=== PATIENT | male | born 1970 | race Caucasian/White ===

== ENCOUNTER 2023-08-21 08:07 | Day surgery (SDC) | payer BC, SELFPAY ==
[2023-08-21] VITALS (9 sets, daily range): BP systolic 113–165; BP diastolic 68–102; PULSE 59–79; RESP 13–20; TEMP 36.4–36.8; O2SAT 96–98; BMI 34.7
--- NOTE | 2023-08-21 08:31 | ED.GENADUL_ITS ---
Discharge Plan Disposition Patient Disposition: Admit to [facility] Condition: Serious Discharge Details Clinical Impression: Foreign body in anus and rectum, initial encounter Primary Care Provider: HermelindaLocal ED Provider: Elijah Ponce Home Meds and New Rx's Prescriptions: No Action lisinopril 40 mg tablet 40 mg PO ONCE Patient Comments: TAKE 1 TABLET BY MOUTH EVERY DAY folic acid 1 mg tablet 1 mg PO ONCE Patient Comments: 1 TABLET DAILY methotrexate sodium 2.5 mg tablet 2.5 mg PO .COMPLEX Patient Comments: 5 TABLET WEEKLY Rx Instructions: 2.5 mg orally x1/week; infliximab [Remicade] 100 mg recon soln 1 mg IV .q8wk HPI General Mode of arrival: ambulatory . Date/Time Provider Initiated Documentation: 08/21/23 08:14 . Limitations to Documentation: no limitations . Information obtained by: patient . HPI Narrative: 53-year-old male here with chief complaint of foreign body in the rectum. Patient notes a vibrating dildo was placed in his rectum last night around 10 PM. He has not been able to remove the sex toy. He feels pressure in his rectum like yes to have a bowel movement. No other symptoms. Related Data Home Medications Medication Instructions Recorded Confirmed folic acid 1 mg tablet 1 mg PO ONCE 08/21/23 08/21/23 infliximab 100 mg intravenous 1 mg IV .q8wk 08/21/23 08/21/23 solution (Remicade) lisinopril 40 mg tablet 40 mg PO ONCE 08/21/23 08/21/23 methotrexate sodium 2.5 mg tablet 2.5 mg PO .COMPLEX 08/21/23 08/21/23 Allergies Allergy/AdvReac Type Severity Reaction Status Date / Time Penicillins AdvReac Hives Verified 08/21/23 08:15 General Stated Complaint: ForeignBody ISABELL: 3 Review of Systems Gastrointestinal Gastrointestinal: Reports as per HPI Exam Const General: cooperative and no acute distress HENMT Mouth: moist mucous membranes Cardio Rate: regular rate and not tachycardic Rhythm: regular rhythm GI Palpation: soft, not firm, no guarding, no masses, not rigid and nontender Skin General skin exam: no rashes or lesions noted Neuro General: patient alert, patient awake and tone normal Course Vital Signs Vital signs: Vital Signs Temperature 36.8 C 08/21/23 08:12 Pulse 79 08/21/23 08:12 Respiratory Rate 18 08/21/23 08:12 Blood Pressure 165/102 H 08/21/23 08:12 Pulse Oximetry 98 08/21/23 08:12 Temperature 36.8 C 08/21/23 08:12 Pulse 79 08/21/23 08:12 Respiratory Rate 18 08/21/23 08:12 Respiratory Effort Normal, Non-Labored 08/21/23 08:19 Blood Pressure 165/102 H 08/21/23 08:12 Pulse Oximetry 98 08/21/23 08:12 Oxygen Delivery Method Room Air 08/21/23 08:12 Oxygen Flow Rate 0 08/21/23 08:12 Medical Decision Making 835 --53-year-old male with history of psoriatic arthritis on Remicade and methotrexate, here with retained foreign body in his rectum since last night at 10 PM. 910 --x-ray of the pelvis was reviewed and interpreted by me: Foreign body with electrical components present in the pelvis. I attempted manual removal after verbal consent and with nurse operator assistant i cementing Vaishali present. Initially I was able to gently palpate the end of the object but could not grasp. I attempted to thread a flexible 4-0 ET tube between the device and rectal wall to attempt to break vacuum suction. I was unable to pass end of device with catheter. Procedure aborted after initial attempt. Patient tolerated procedure well without significant discomfort. No rectal bleeding. I contacted general surgeon on-call, Dr. Alfaro, discussed ED presentation course, he will evaluate the patient with plan for OR. No diagnostic labs needed. Quality:SDOH Health Related Social Needs: No Data to Display PFSH All Active Problems (Updated 08/21/23 @ 09:20 by Elijah Ponce MD) Foreign body in anus and rectum, initial encounter (Acute) Social History Smoking/Tobacco Use Status: Never Smoking risk assessment performed?: Yes Alcohol Intake: current Alcohol Intake frequency: a few times a month Substance use type: does not use Housing: house Do you feel safe at home: Yes Do you feel safe in your relationship?: Yes PAWSS Have you Been Recently Intoxicated or Drunk Within the Last 30 days?: Yes Have you Ever Experienced Previous Episodes of Alcohol Withdrawal?: No Have you ever Experienced Withdrawal Seizures?: No Have you ever Experienced Delirium Tremens(DT)s?: No Have you ever undergone Alcohol Rehabilitation Treatment (i.e, inpt ot outpatient treatment programs)?: No Have you ever Experienced Blackouts?: No Have you ever Combined Alcohol with other Downers within the last 90 days?: No Evidence of Increased Autonomic Activity (i.e. HR>120, tremor, sweating, agitation, nausea)?: No Result: 1
--- NOTE | 2023-08-21 08:54 | DI.RAD_ITS ---
Exam(s) XR PELVIS AP EXAM: XR PELVIS AP CLINICAL HISTORY: fb in rectum. TECHNIQUE: 2D digital imaging was performed. COMPARISON: No exams were available for comparison FINDINGS: Single-view No fractures nor osseous lesions. The main finding here is a foreign body in the rectum which measures approximately 14 cm length. Aiden roximately 3 cm width. IMPRESSION: Foreign body in rectum as described above DATA REPOSITORY: RADIATION DOSE DELIVERED:
--- NOTE | 2023-08-21 10:13 | W.PREOPHP ---
Assessment and Plan Assessment and plan (1) Foreign body in anus and rectum, initial encounter: Status: Acute Assessment and plan: Julio Cesar and I talked about various techniques to help retrieve this foreign body. Hopefully, with sedation and relaxation, we can get it by way of a transanal approach. If that is unsuccessful, he will need laparoscopy or laparotomy to assist with removal. I think he has a good understanding of what to expect in terms of the procedure, and possible recovery scenarios. He is able to provide consent, and we will make arrangements to proceed to the operating room soon as possible. History of Present Illness History of Present Illness Chief Complaint: Rectal foreign body Narrative: Julio Cesar is 53 years old. The event occurred around 10 PM last night. He has tenesmus, and some mild lower pelvic and anorectal discomfort. Tends to come and go in waves. He denies any nausea or vomiting. He denies any rectal bleeding. Came to the emergency department for help. Attempts were made to remove it there, but that has been unsuccessful. Other medical history includes hypertension and psoriasis. He takes Remicade and methotrexate for his psoriasis. He takes lisinopril for hypertension He is allergic to penicillin He has never had any intra-abdominal surgery. Other exposure to anesthesia is unremarkable. Review of Systems Constitutional Constitutional: Denies fever(s) Eyes Eyes: Reports system reviewed and no additional complaints, except as documented ENT Ears, Nose, Mouth, and Throat: Reports system reviewed and no additional complaints, except as documented Cardiovascular Cardiovascular: Denies chest pain and Denies dyspnea Respiratory Respiratory: Denies chest congestion, Denies cough and Denies dyspnea Gastrointestinal Comments: Tenesmus Genitourinary Genitourinary: Reports system reviewed and no additional complaints, except as documented Musculoskeletal Musculoskeletal: Reports system reviewed and no additional complaints, except as documented Neurologic Neurologic: Reports system reviewed and no additional complaints, except as documented Hematologic/Lymphatic Hematologic/Lymphatic: Denies easy bleeding and Denies easy bruising PFSH All Active Problems (Updated 08/21/23 @ 09:20 by Elijah Ponce MD) Foreign body in anus and rectum, initial encounter (Acute) Social History Smoking/Tobacco Use Status: Never Smoking risk assessment performed?: Yes Alcohol Intake: current Alcohol Intake frequency: a few times a month Substance use type: does not use Housing: house Do you feel safe at home: Yes Do you feel safe in your relationship?: Yes Meds Allergies and Home Medications Allergies Allergy/AdvReac Type Severity Reaction Status Date / Time Penicillins AdvReac Hives Verified 08/21/23 08:15 Home Medications Medication Instructions Recorded Confirmed Type folic acid 1 mg tablet 1 mg PO ONCE 08/21/23 08/21/23 History infliximab 100 mg intravenous 1 mg IV .q8wk 08/21/23 08/21/23 History solution (Remicade) lisinopril 40 mg tablet 40 mg PO ONCE 08/21/23 08/21/23 History methotrexate sodium 2.5 mg tablet 2.5 mg PO .COMPLEX 08/21/23 08/21/23 History Exam Const General: cooperative, healthy appearing and comfortable Orientation: alert, awake and oriented x3 HENMT Head: normal to inspection Eyes General: appearance normal, both eyes and all related structures Neck Neck: normal visual inspection, full ROM and no lymphadenopathy Resp Effort & Inspection: normal respiratory effort, able to speak in complete sentences and no cough Auscultation: clear to auscultation bilaterally Cardio Rate: regular rate Rhythm: regular rhythm Heart Sounds: S1 normal and S2 normal GI Inspection: normal to inspection Palpation: soft, no guarding and nontender Results Last Vital Signs Temp 98.2 F 08/21/23 08:30 Pulse 79 08/21/23 08:30 Resp 18 08/21/23 08:30 BP 165/102 H 08/21/23 08:30 Pulse Ox 98 08/21/23 08:30
--- NOTE | 2023-08-21 10:17 | W.ANESPRE ---
General Info Date of Service Date Performed: 08/21/23 Height: 6 ft 2 in Weight: 122.47 kg Body Mass Index (BMI): 34.7 Surgical Procedure: Operation Date: 08/21/23 12:25 Proposed Procedure Side Surgeon p Exam Under Anesthesia, Possible Laparoscopy, Possible Laparotomy Izaiah Alfaro MD s Flexible Sigmoidoscopy Izaiah Alfaro MD Meds Allergies and Home Medications Allergies Allergy/AdvReac Type Severity Reaction Status Date / Time Penicillins AdvReac Hives Verified 08/21/23 08:15 Home Medication Medication Instructions Recorded folic acid 1 mg tablet 1 mg PO ONCE 08/21/23 infliximab 100 mg intravenous 1 mg IV .q8wk 08/21/23 solution (Remicade) lisinopril 40 mg tablet 40 mg PO ONCE 08/21/23 methotrexate sodium 2.5 mg tablet 2.5 mg PO .COMPLEX 08/21/23 Current Visit Medications: Current Medications Generic Name Dose Route Start Last Admin Trade Name Freq PRN Reason Stop Dose Admin IV Miscellaneous Supplies 1 each 08/21/23 09:15 Iv Access-Emergency Dept IV DIRECTED [facility] Active Problems Active Problems: Problem Status Onset Code Foreign body in anus and rectum, initial encounter T18.5XXA Tobacco Smoking/Tobacco Use Status: Never Alcohol Alcohol Intake: current Alcohol intake frequency: a few times a month Substance Use Substance use type: does not use Vital Signs and Lab Results Vital Signs Most Recent Vital Signs in EMR: Most Recent Vital Signs Temp Pulse Resp BP Pulse Ox 36.8 C 79 18 165/102 H 98 08/21/23 08:30 08/21/23 08:30 08/21/23 08:30 08/21/23 08:30 08/21/23 08:30 Lab Results Blood Type / Crossmatch: No Data to Display Complete Blood Count: No Data to Display Complete Metabolic Panel: No Data to Display Liver Function Panel: No Data to Display Coagulation Panel: No Data to Display Cardiac Panel: No Data to Display Arterial Blood Gas: No Data to Display Venous Blood Gas: No Data to Display Pancreas Panel: No Data to Display Thyroid Panel: No Data to Display Infectious Disease: No Data to Display Blood Cultures: No Data to Display Toxicology Panel: No Data to Display Anesthesia Assessment and Plan Anesthesia History Personal History: No History of Anesthesia Complications Family History: No Family History of Anesthesia Complications Exercise Tolerance Exercise Tolerance: Metabolic Equivalents>4 Pertinent Negatives Pertinent Negatives: No Symptoms of GERD Cardiac & Pulmonary Exam Cardiac Exam: Heart Murmur Present (Bicuspid aortic murmur) Pulmonary Exam: Clear Bilateral Breath Sounds Implantable Cardiac Device Does patient have a Pacemaker or an ICD?: No Airway Exam Known Difficult Airway: No Mallampati Class: 2 Mouth Opening: Normal (> 3cm) Thyromental Distance: Greater than 3 cm Neck Range of Motion: Full ROM Neck Circumference: Normal Teeth Condition: Normal Dentition ASA Classification ASA Score: ASA 2 Emergency Case?: Yes NPO Status NPO Status: NPO Clears >2 hours, Solids >8 hours Anesthesia Plan Resuscitation Status: Full Code Anesthesia Technique: General Anesthesia Airway Planned: Endotracheal Tube Monitors Used: Standard Monitors
[2023-08-21] MEDS: Lactated Ringers 1,000 ML 75 ML IV (12:08)
[2023-08-21] MEDS: Bupivacaine 0.5% Pres-Free W/EPI 10 ML VIAL (12:34)
[2023-08-21] MEDS: Bupivacaine LIPOSOME/PF 133 MG/10 ML VIAL IJ (12:34)
--- NOTE | 2023-08-21 12:46 | PDOC.DSDIS_ITS ---
Date of service: 08/21/23 Time of Service: 12:46 Discharge Plan Disposition Patient Disposition: Home Condition: Improving Discharge Details Reason For Visit: Anal obstruction Attending Provider: Izaiah Alfaro Primary Care Provider: Hermelinda,Local Home Meds and New Rx's Prescriptions: Continued lisinopril 40 mg tablet 40 mg PO ONCE Patient Comments: TAKE 1 TABLET BY MOUTH EVERY DAY folic acid 1 mg tablet 1 mg PO ONCE Patient Comments: 1 TABLET DAILY methotrexate sodium 2.5 mg tablet 2.5 mg PO .COMPLEX Patient Comments: 5 TABLET WEEKLY Rx Instructions: 2.5 mg orally x1/week; infliximab [Remicade] 100 mg recon soln 1 mg IV .q8wk Discharge Instructions Additional Instructions: Nico, we were able to take care of the problem without any issues. Everything inside looks very healthy, and I do not see anything to worry about. Hopefully this provides some relief. You may have a little bit of pain down around your anus over the next few days, I did use some local anesthetic to help try to provide some relief. You may also want to look into using some sitz bath's at home. Sitz bath's can be purchased at a pharmacy, or if you have a bathtub in the house you can simply use that. Fill it with just a couple inches of lukewarm water, and mix in some Epsom salts or baking soda. I typically recomme nd about a tablespoon of Epsom salts or or baking soda to about a gallon of water. Soak your backside for about 15 minutes to provide relief of discomfort. I usually recommend people do this about 3 times a day, or after each bowel movement. It may also be worth using a laxative such as MiraLAX, or a fiber supplement such as Metamucil over the next few days to ensure that you have soft and regular stools. Crnl-glr-fmnjtik hemorrhoid creams, suppositories, or pads such as Tucks might also aid in your recovery. You do not need any specific follow-up, but if you have any questions at all, please do not be afraid to call and let me know. Activity:: Activity as Tolerated Diet:: As Tolerated DS: Diagnosis Discharge Diagnosis (1) Foreign body in anus and rectum, initial encounter: Status: Acute Asessment and Plan: Discharge home with instructions, no follow-up necessary
--- NOTE | 2023-08-21 12:50 | W.PM.OP ---
Date of service: 08/21/23 Time of Service: 12:50 Operative Note Operative Note DATE OF PROCEDURE: 08/21/23 PRE-OP DIAGNOSIS: Foreign body retained in the rectum POST-OP DIAGNOSIS: same PROCEDURE: Anorectal exam under anesthesia with flexible sigmoidoscopy and retrieval of retained foreign body SURGEON: Izaiah Alfaro VISITOR SERVICES ASSISTANT: Joana Latham ANESTHESIA TYPE: Local By Surgeon and General LMA/ETT Refer to Anesthesia Record ESTIMATED BLOOD LOSS: 0 PATHOLOGY: none sent COMPLICATIONS: None Patient was transported to: PACU Patient's condition: stable Indications: Nico is a 53-year-old male with a retained foreign body in his rectum Findings: Retained rectal foreign body Procedure Description: Patient was brought to the operating room, and a routine timeout procedure was conducted prior to starting. Next, he was moved onto the operating room table, and general endotracheal anesthesia was induced without any issue. He was then moved to lithotomy positioning. Great care was taken to support him appropriately, pad all points of contact. Next, a Mahan urinary bladder catheter was inserted in the usual fashion. I began with an external anorectal examination. There was a little bit of erythema around the anus, but I do not see any obvious fissures or other pathology. Next, I performed a digital rectal exam. I could feel the bottom portion of the retained foreign body. Next, I gently advanced a flexible sigmoidoscope into the distal rectal vault. Small amount of insufflation and irrigation were used for visualization. The retained object was was seen within the rectal vault. Next, I gently advance some ring forceps into the rectal vault under the vision of the sigmoidoscope. Distal portion of the foreign body was gently grasped, and with slight downward pelvic pressure, it was withdrawn. I performed another rectal exam which felt normal, and reinserted the sigmoidoscope. Flexible sigmoidoscopy was performed up to about 30 cm. There was some retained stool that was easily irrigated. The mucosa was healthy appearing. I did not see any signs of ischemia, bleeding, or any other rectal trauma. The sigmoidoscope was then removed, and the patient was moved back to the supine position prior to extubation. No specimens were sent.
--- NOTE | 2023-08-21 13:31 | W.ANESPOSTOP ---
Postoperative Evaluation Date, Time and Location Date Performed: 08/21/23 Time Performed: 13:31 Patient Location: Day Surgery Unit Vital Signs Most Recent Imported Vital Signs: Most Recent Vital Signs Temp Pulse Resp BP Pulse Ox 36.4 C L 59 L 16 134/73 97 08/21/23 13:29 08/21/23 13:29 08/21/23 13:29 08/21/23 13:29 08/21/23 13:29 Pain Score Most Recent Pain Score: Most Recent Pain Score Pain Level 2 08/21/23 13:29 Assessment Mental Status: Awake (Alert & Oriented to Patient Baseline) Airway and Respiratory Function: Patent airway with normal (patient baseline) respiratory exam Cardiovascular Function: Hemodynamically Stable Hydration Status: Adequately Hydrated Nausea & Vomiting: No Nausea or Vomiting Pain: Pt. Denies Any Pain Peripheral Nerve Block: Patient did not receive a nerve block
--- NOTE | 2023-08-21 16:10 | NUR.NOTE ---
1335: Upon learning that this patient did not have a ride home, a responsible adult escort to stay with him at home until the effects of anesthesia have worn off, and refused to stay overnight on med/surg, this (charge) RN huddled with the anesthesia team (Remy Escalante CRNA and Selvin Nix CRNA), Tati Lanier RN, and Brisa Reid with Risk Management to create the safest possible discharge plan. The team planned for the patient to sign AMA paperwork and provide information for the patient to take a taxi ride home from the hospital upon discharge. The plan was provided to the patient by Selvin Nix CRNA, and per the anesthesia provider, the patient was agreeable to the plan. The patient reported that he called [employer] and also signed the AMA paperwork without any issues. Upon discharge, Malaiak Vasquez RN escorted the patient out of DSU; the patient ambulated out of DSU independently without complication. The patient reported that he was going to go to the cafeteria while he waited for the taxi to arrive. Leah Ponce RN.
== END 2023-08-21 12:00 | disposition home or self-care (01) ==
LOC: ER 10:51 → SUR 11:58
PROVIDERS: Surgery; Emergency Provider Student in an Organized Health Care Education/Training Program; Visit Provider Surgery
PROC: 0DJD8ZZ Inspection of Lower Intestinal Tract, Via Natural or Artificial Opening Endoscopic (ICD-10-PCS; CPT 45330; 2023-08-21 12:15)
DX: T18.5XXA Foreign body in anus and rectum, initial encounter (principal); K62.89 Other specified diseases of anus and rectum; I10 Essential (primary) hypertension
CPT/HCPCS: 45332; 72170; C9290; J1100; J2001; J2250; J2405; J2704; J3010